=== PATIENT | male | born 1950 | race Caucasian/White ===

== ENCOUNTER 2023-08-08 15:03 | Inpatient (IN) | payer BC, MEDICARE ==
--- NOTE | 2023-08-08 16:00 | CT ---
EXAMINATION TYPE: CT brain wo con CT DLP: 1100.4 mGycm, Automated exposure control for dose reduction was used. DATE OF EXAM: 08/08/2023 3:31 PM COMPARISON: None. CLINICAL INDICATION:Male, 73 years old with history of Neuro deficit, acute, stroke suspected, weakne ss TECHNIQUE: Brain: Multiple axial CT images of the brain were obtained without IV contrast. Coronal and sagittal reformats reviewed. FINDINGS: Brain: Extra-axial spaces: No abnormal extra-axial fluid collections. Ventricular system: Within normal limits Cerebral parenchyma: Cerebral atrophy. No acute intraparenchymal hemorrhage. Regions of hypoattenuati on with loss of bowman-white differentiation in the periphery of the right frontal parietal and tempora l lobes along the sylvian fissure.. Scattered hypoattenuating areas are seen within the white matter. Cerebellum: Unremarkable. Mass effect: No evidence of midline shift. Intracranial vasculature: Atherosclerotic calcifications of the intracranial vessels. Soft tissues: Normal. Calvarium/osseous structures: No depressed skull fracture. Paranasal sinuses and mastoid air cells: The mastoid air cells are clear. Mild mucosal thickening of the bilateral ethmoid sinuses. Mild mucosal thickening in the right frontal sinus. Moderate mucosal t hickening of the right maxillary sinus without air-fluid level. Visualized orbits: Orbital contents are intact. IMPRESSION: 1. Findings most consistent with acute/subacute ischemia within the right MCA distribution. 2. Nonspecific white matter changes, likely secondary to chronic small vessel ischemic disease. 3. Paranasal sinus disease which is most pronounced within the right maxillary sinus. Air-fluid leve l demonstrated. Correlate for acute on chronic sinusitis. Findings called and discussed with Dr. Tejeda at 3:56 PM on 08/08/2023.
[2023-08-08] MEDS ORDERED: SODIUM CHLORIDE 0.9% 1,000 ML IV STA (16:01)
--- NOTE | 2023-08-08 16:08 | ED ---
Neuro HPI - General Chief Complaint: Neuro Symptoms/Deficit Stated Complaint: poss Stroke Time Seen by Provider: 08/08/23 15:47 Source: patient, RN notes reviewed, old records reviewed Mode of arrival: ambulatory - History of Present Illness Is the patient presenting with stroke symptoms?: Yes -: hour(s) (16) Initial Comments: This is a 73-year-old male to the emergency department for evaluation today. Patient presents today for evaluation to the emergency department of strokelike symptoms numbness tingling face facial droop starting before bed last night. Patient has no other complaints no current headache patient has no chest pain or shortness of breath. Patient has no significant medical history no high blood pressure cholesterol diabetes, patient has history of skin cancer Location: speech, left face, dysarthria Place: home Severity: moderate Quality: weak, numb, tingling Improves With: none Worsens With: none Context: gradual onset Associated Symptoms: denies other symptoms Treatments Prior to Arrival: none - Related Data Home Medications: Previous Rx's Medication Instructions Recorded Aspirin 81 mg PO DAILY 90 Days #90 tab 08/10/23 Atorvastatin [Lipitor] 80 mg PO HS 90 Days #90 tab 08/10/23 Clopidogrel [Plavix] 75 mg PO DAILY 21 Days #21 tab 08/10/23 Allergies/Adverse Reactions: Allergies Allergy/AdvReac Type Severity Reaction Status Date / Time No Known Allergies Allergy Verified 08/08/23 16:36 Review of Systems ROS Statement: Those systems with pertinent positive or pertinent negative responses have been documented in the HPI. ROS Other: All systems not noted in ROS Statement are negative. General Exam - General Exam Comments Initial Comments: NIH 4 General appearance: alert, in no apparent distress Head exam: Present: atraumatic, normocephalic, normal inspection Eye exam: Present: normal appearance, PERRL, EOMI. Absent: scleral icterus, conjunctival injection, periorbital swelling ENT exam: Present: normal exam, mucous membranes moist Neck exam: Present: normal inspection. Absent: tenderness, meningismus, lymphadenopathy Respiratory exam: Present: normal lung sounds bilaterally. Absent: respiratory distress, wheezes, rales, rhonchi, stridor Cardiovascular Exam: Present: regular rate, normal rhythm, normal heart sounds. Absent: systolic murmur, diastolic murmur, rubs, gallop, clicks GI/Abdominal exam: Present: soft, normal bowel sounds. Absent: distended, tenderness, guarding, rebound, rigid Extremities exam: Present: normal inspection, full ROM, normal capillary refill. Absent: tenderness, pedal edema, joint swelling, calf tenderness Back exam: Present: normal inspection Neurological exam: Present: alert, oriented X3, CN II-XII intact Psychiatric exam: Present: normal affect, normal mood Skin exam: Present: warm, dry, intact, normal color. Absent: rash Stroke MDM - Lab Data Result diagrams: 08/08/23 15:44 08/08/23 15:44 Lab Results 08/08/23 08/08/23 08/08/23 Range/Units 15:44 15:44 15:44 WBC 8.8 (3.8-10.6) k/uL RBC 4.74 (4.30-5.90) m/uL Hgb 15.2 (13.0-17.5) gm/dL Hct 45.7 (39.0-53.0) % MCV 96.6 (80.0-100.0) fL MCH 32.0 (25.0-35.0) pg MCHC 33.2 (31.0-37.0) g/dL RDW 12.6 (11.5-15.5) % Plt Count 340 (150-450) k/uL MPV 7.4 Neutrophils % 71 % Lymphocytes % 20 % Monocytes % 6 % Eosinophils % 1 % Basophils % 0 % Neutrophils # 6.3 (1.3-7.7) k/uL Lymphocytes # 1.8 (1.0-4.8) k/uL Monocytes # 0.5 (0-1.0) k/uL Eosinophils # 0.1 (0-0.7) k/uL Basophils # 0.0 (0-0.2) k/uL PT 10.6 (10.0-12.5) sec INR 1.0 (<1.2) APTT 22.6 (22.0-30.0) sec Sodium 135 L (137-145) mmol/L Potassium 4.1 (3.5-5.1) mmol/L Chloride 100 (98-107) mmol/L Carbon Dioxide 22 (22-30) mmol/L Anion Gap 13 mmol/L BUN 19 (9-20) mg/dL Creatinine 0.90 (0.66-1.25) mg/dL Est GFR (CKD-EPI)AfAm >90 (>60 ml/min/1.73 sqM) Est GFR (CKD-EPI)NonAf 84 (>60 ml/min/1.73 sqM) Glucose 105 H (74-99) mg/dL Estimated Ave Glu mg/dL mg/dL Hemoglobin A1c (<=6.0) % Calcium 8.7 (8.4-10.2) mg/dL Phosphorus (2.5-4.5) mg/dL Magnesium (1.6-2.3) mg/dL Total Bilirubin 1.1 (0.2-1.3) mg/dL AST 29 (17-59) U/L ALT 16 (4-49) U/L Alkaline Phosphatase 59 (38-126) U/L Creatine Kinase 62 (55-170) U/L Troponin I (0.000-0.034) ng/mL Total Protein 7.1 (6.3-8.2) g/dL Albumin 4.1 (3.5-5.0) g/dL Triglycerides (0.00-149.00) mg/dL Cholesterol (0.00-200.00) mg/dL LDL Cholesterol, Calc (0.0-131.0) mg/dL VLDL Cholesterol, Calc (5.00-40.00) mg/dL HDL Cholesterol (40.00-60.00) mg/dL Cholesterol/HDL Ratio Ratio 08/08/23 08/08/23 08/08/23 Range/Units 15:44 15:44 15:44 WBC (3.8-10.6) k/uL RBC (4.30-5.90) m/uL Hgb (13.0-17.5) gm/dL Hct (39.0-53.0) % MCV (80.0-100.0) fL MCH (25.0-35.0) pg MCHC (31.0-37.0) g/dL RDW (11.5-15.5) % Plt Count (150-450) k/uL MPV Neutrophils % % Lymphocytes % % Monocytes % % Eosinophils % % Basophils % % Neutrophils # (1.3-7.7) k/uL Lymphocytes # (1.0-4.8) k/uL Monocytes # (0-1.0) k/uL Eosinophils # (0-0.7) k/uL Basophils # (0-0.2) k/uL PT (10.0-12.5) sec INR (<1.2) APTT (22.0-30.0) sec Sodium (137-145) mmol/L Potassium (3.5-5.1) mmol/L Chloride (98-107) mmol/L Carbon Dioxide (22-30) mmol/L Anion Gap mmol/L BUN (9-20) mg/dL Creatinine (0.66-1.25) mg/dL Est GFR (CKD-EPI)AfAm (>60 ml/min/1.73 sqM) Est GFR (CKD-EPI)NonAf (>60 ml/min/1.73 sqM) Glucose (74-99) mg/dL Estimated Ave Glu mg/dL mg/dL Hemoglobin A1c (<=6.0) % Calcium (8.4-10.2) mg/dL Phosphorus 3.4 (2.5-4.5) mg/dL Magnesium 2.0 (1.6-2.3) mg/dL Total Bilirubin (0.2-1.3) mg/dL AST (17-59) U/L ALT (4-49) U/L Alkaline Phosphatase (38-126) U/L Creatine Kinase (55-170) U/L Troponin I 0.213 H* (0.000-0.034) ng/mL Total Protein (6.3-8.2) g/dL Albumin (3.5-5.0) g/dL Triglycerides 63.80 (0.00-149.00) mg/dL Cholesterol 192.00 (0.00-200.00) mg/dL LDL Cholesterol, Calc 104.5 (0.0-131.0) mg/dL VLDL Cholesterol, Calc 12.76 (5.00-40.00) mg/dL HDL Cholesterol 74.70 H (40.00-60.00) mg/dL Cholesterol/HDL Ratio 2.57 Ratio 08/08/23 Range/Units 15:44 WBC (3.8-10.6) k/uL RBC (4.30-5.90) m/uL Hgb (13.0-17.5) gm/dL Hct (39.0-53.0) % MCV (80.0-100.0) fL MCH (25.0-35.0) pg MCHC (31.0-37.0) g/dL RDW (11.5-15.5) % Plt Count (150-450) k/uL MPV Neutrophils % % Lymphocytes % % Monocytes % % Eosinophils % % Basophils % % Neutrophils # (1.3-7.7) k/uL Lymphocytes # (1.0-4.8) k/uL Monocytes # (0-1.0) k/uL Eosinophils # (0-0.7) k/uL Basophils # (0-0.2) k/uL PT (10.0-12.5) sec INR (<1.2) APTT (22.0-30.0) sec Sodium (137-145) mmol/L Potassium (3.5-5.1) mmol/L Chloride (98-107) mmol/L Carbon Dioxide (22-30) mmol/L Anion Gap mmol/L BUN (9-20) mg/dL Creatinine (0.66-1.25) mg/dL Est GFR (CKD-EPI)AfAm (>60 ml/min/1.73 sqM) Est GFR (CKD-EPI)NonAf (>60 ml/min/1.73 sqM) Glucose (74-99) mg/dL Estimated Ave Glu mg/dL 114 mg/dL Hemoglobin A1c 5.6 (<=6.0) % Calcium (8.4-10.2) mg/dL Phosphorus (2.5-4.5) mg/dL Magnesium (1.6-2.3) mg/dL Total Bilirubin (0.2-1.3) mg/dL AST (17-59) U/L ALT (4-49) U/L Alkaline Phosphatase (38-126) U/L Creatine Kinase (55-170) U/L Troponin I (0.000-0.034) ng/mL Total Protein (6.3-8.2) g/dL Albumin (3.5-5.0) g/dL Triglycerides (0.00-149.00) mg/dL Cholesterol (0.00-200.00) mg/dL LDL Cholesterol, Calc (0.0-131.0) mg/dL VLDL Cholesterol, Calc (5.00-40.00) mg/dL HDL Cholesterol (40.00-60.00) mg/dL Cholesterol/HDL Ratio Ratio - NIH Stroke Scale 1a. Level of Consciousness: (0) alert 1b. LOC Questions: (0) answers correctly 1c. LOC Commands: (0) performs tasks correctly 2. Best Gaze: (1) partial gaze palsy 3. Visual: (0) no visual loss 4. Facial Palsy: (0) normal symmetrical movement 5a. Motor Arm Left: (1) drift 5b. Motor Arm Right: (0) no drift 6a. Motor Leg Left: (0) no drift 6b. Motor Leg Right: (0) no drift 7. Limb Ataxia: (0) absent 8. Sensory: (0) normal 9. Best Language: (1) mild/moderate aphasia 10. Dysarthria: (1) mild/moderate dysarthria 11. Extinction/Inattention: (0) no abnormality - Thrombolytic Inclusion/Exclusion Thrombolytic Exclusion Criteria: Symptom Onset > 4.5 Hours - Medical Decision Making 73 male to the emergency department for evaluation of around 16 hours of slurred speech and facial droop starting last night before bed. Patient was a code stroke on arrival. CT angiogram had neck is negative for malaise. Patient will be admitted as he does show subacute infarct on computed tomography scan, patient is not a TPA candidate secondary to presentation greater than 12 hours after onset of symptoms - Radiology Data Radiology results: report reviewed (CT brain does show subacute MCA infarct), image reviewed - EKG Data -: EKG Interpreted by Me (EKG is sinus 86 MI 158 QRS 82 QTC 40 to) Past Medical History Past Medical History: No Reported History, Cancer Additional Past Medical History / Comment(s): skin ca History of Any Multi-Drug Resistant Organisms: None Reported Past Surgical History: Tonsillectomy Past Psychological History: No Psychological Hx Reported Smoking Status: Former smoker Past Alcohol Use History: Occasional Past Drug Use History: None Reported - Past Family History Father Family Medical History: CVA/TIA, Dementia Mother Family Medical History: Cancer Course Vital Signs 08/08/23 08/08/23 08/08/23 15:11 16:20 16:30 Temperature 98.2 F Pulse Rate 95 89 84 Respiratory 18 18 18 Rate Blood Pressure 160/97 129/84 127/75 O2 Sat by Pulse 96 96 96 Oximetry 08/08/23 08/08/2308/08/23 16:40 16:50 17:00 Temperature Pulse Rate 79 80 79 Respiratory 16 18 14 Rate Blood Pressure 126/73 126/71 124/74 O2 Sat by Pulse 94 L 94 L 97 Oximetry 08/08/23 08/08/23 08/08/23 17:10 17:30 18:00 Temperature Pulse Rate 79 79 76 Respiratory 14 14 14 Rate Blood Pressure 124/69 121/70 121/75 O2 Sat by Pulse 97 97 96 Oximetry 08/08/23 08/08/23 08/08/23 18:30 19:00 19:10 Temperature 97.8 F Pulse Rate 73 84 Respiratory 18 16 14 Rate Blood Pressure 112/85 121/75 122/69 O2 Sat by Pulse 96 96 Oximetry 08/08/23 08/08/23 08/08/23 21:00 22:00 23:00 Temperature Pulse Rate 71 75 68 Respiratory 14 16 16 Rate Blood Pressure 108/62 105/60 103/66 O2 Sat by Pulse 96 96 95 Oximetry 08/09/23 08/09/23 08/09/23 00:00 01:00 02:00 Temperature Pulse Rate 90 74 64 Respiratory 16 18 Rate Blood Pressure 104/57 116/77 111/68 O2 Sat by Pulse 94 L 94 L Oximetry 08/09/23 08/09/23 08/09/23 06:00 08:48 08:57 Temperature Pulse Rate 67 81 Respiratory 16 18 Rate Blood Pressure 112/57 142/74 O2 Sat by Pulse 98 97 97 Oximetry 08/09/23 11:26 Temperature Pulse Rate 70 Respiratory 18 Rate Blood Pressure 122/76 O2 Sat by Pulse 97 Oximetry - Reevaluation(s) Reevaluation #1: 08/08/23 18:24 Medical records reviewed Code stroke paged on patient arrival Reevaluation #2: 08/08/23 18:24 Patient has no change in neurological status Reevaluation #3: 08/08/23 18:24 Patient informed results questions answered Reevaluation #4: 08/08/23 18:24 Was pt. sent in by a medical professional or institution (, PA, FIELD HEALTH OFFICER, urgent care, hospital, or jail...) When possible be specific @ -no Did you speak to anyone other than the patient for history (EMS, parent, family, police, friend...)? What history was obtained from this source @ -no Did you review nursing and triage notes (agree or disagree)? Why? @ -agree Are old charts reviewed (outside hosp., previous admission, EMS record, old EKG, old radiological studies, urgent care reports/EKG's, jail records)? Report findings @ -yes Differential Diagnosis (chest pain, altered mental status, abdominal pain women, abdominal pain men, vaginal bleeding, weakness, fever, dyspnea, syncope, headache, dizziness, GI bleed, back pain, seizure, CVA, palpatations, mental health, musculoskeletal)? @ -prior EKG interpreted by me (3pts min.). @ -yes X-rays interpreted by me (1pt min.). @ -no CT interpreted by me (1pt min.). @ -yes U/S interpreted by me (1pt. min.). @ -no What testing was considered but not performed or refused? (CT, X-rays, U/S, labs)? Why? @ -none What meds were considered but not given or refused? Why? @ -none Did you discuss the management of the patient with other professionals (professionals i.e. , PA, FIELD HEALTH OFFICER, lab, RT, psych nurse, social professionals, gasateria attendant, teacher, business services officer, therapeutic case manager)? Give summary @ -no Was smoking cessation discussed for >3mins.? @ -no Was critical care preformed (if so, how long)? @ -yes31 Were there social determinants of health that impacted care today? How? (Homeles sness, low income, unemployed, alcoholism, drug addiction, transportation, low edu. Level, literacy, decrease access to med. care, alf, rehab)? @ -none Was there de-escalation of care discussed even if they declined (Discuss DNR or withdrawal of care, Hospice)? DNR status @ -no What co-morbidities impacted this encounter? (DM, HTN, Smoking, COPD, CAD, Cancer, CVA, ARF, Chemo, Hep., AIDS, mental health diagnosis, sleep apnea, morbid obesity)? @ -none Was patient admitted / discharged? Hospital course, mention meds given and route, prescriptions, significant lab abnormalities, going to OR and other pertinent info. @ - 73 male to the emergency department for evaluation of around 16 hours of slurred speech and facial droop starting last night before bed. Patient was a code stroke on arrival. CT angiogram had neck is negative for malaise. Patient will be admitted as he does show subacute infarct on computed tomography scan, patient is not a TPA candidate secondary to presentation greater than 12 hours after onset of symptoms Admitted Undiagnosed new problem with uncertain prognosis? @ -no Drug Therapy requiring intensive monitoring for toxicity (Heparin, Nitro, Insulin, Cardizem)? @ -no Were any procedures done? @ -no Diagnosis/symptom? @ -CVA Acute, or Chronic, or Acute on Chronic? @ -Acute Uncomplicated (without systemic symptoms) or Complicated (systemic symptoms)? @ -Complicated Side effects of treatment? @ -no Exacerbation, Progression, or Severe Exacerbation? @ -exacerbation Poses a threat to life or bodily function? How? (Chest pain, USA, MA, pneumonia, PE, COPD, DKA, ARF, appy, cholecystitis, CVA, Diverticulitis, Homicidal, Suicidal, threat to staff... and all critical care pts) @ -yes with acute CVA Reevaluation #5: 08/08/23 18:24 Differential CVA Ischemic stroke, hemorrhagic stroke, brain tumor, atypical migraine, Wernicke's encephalopathy, seizure, multiple sclerosis, meningitis, encephalitis, hyp oglycemia, Guillain-Medrano, electrolytes disturbance, myasthenia gravis.... This is not meant to be an all-inclusive list - Consultations Consultation #1: Spoke with [facility] were agrees to admit this patient Critical Care Time Critical Care Time: Yes Total Critical Care Time: 31 Disposition Clinical Impression: Cerebrovascular accident (CVA), NSTEMI (non-ST elevated myocardial infarction) Disposition: ADMITTED IP TO THIS HOSP Condition: Serious Is patient prescribed a controlled substance at d/c from ED?: No Time of Disposition: 18:20
[2023-08-08 16:10] LABS: ALT 16 U/L (4-49); AST 29 U/L (17-59); African American GFR (CKD) >90 (>60 ml/min/1.73 sqM); Albumin 4.1 g/dL (3.5-5.0); Alkaline Phosphatase 59 U/L (38-126); Anion Gap 13 mmol/L; Blood Urea Nitrogen 19 mg/dL (9-20); Calcium 8.7 mg/dL (8.4-10.2); Carbon Dioxide 22 mmol/L (22-30); Chloride 100 mmol/L (98-107); Creatine Kinase 62 U/L (55-170); Glucose 105 mg/dL (74-99); Non-African American GFR(CKD) 84 (>60 ml/min/1.73 sqM); Potassium 4.1 mmol/L (3.5-5.1); Sodium 135 mmol/L (137-145); Total Bilirubin 1.1 mg/dL (0.2-1.3); Total Protein 7.1 g/dL (6.3-8.2)
[2023-08-08 16:14] LABS: Basophils % (A) 0 %; Eosinophils # (A) 0.1 k/uL (0-0.7); Eosinophils % (A) 1 %; HCT 45.7 % (39.0-53.0); HGB 15.2 gm/dL (13.0-17.5); Lymphocytes # (A) 1.8 k/uL (1.0-4.8); Lymphocytes % (A) 20 %; MCHC 33.2 g/dL (31.0-37.0); MCV 96.6 fL (80.0-100.0); Mean Platelet Volume 7.4; Monocytes # (A) 0.5 k/uL (0-1.0); Monocytes % (A) 6 %; Neutrophils # (A) 6.3 k/uL (1.3-7.7); Neutrophils % (A) 71 %; Platelet Count 340 k/uL (150-450); RBC 4.74 m/uL (4.30-5.90); RDW 12.6 % (11.5-15.5); WBC 8.8 k/uL (3.8-10.6)
[2023-08-08 16:45] LABS: Partial Thromboplastin Time 22.6 sec (22.0-30.0); Prothrombin Time 10.6 sec (10.0-12.5)
--- NOTE | 2023-08-08 16:46 | CT ---
EXAMINATION TYPE: CT angio head neck DATE OF EXAM: 08/08/2023 HISTORY: Code stroke. Left side facial droop and slurred speech. COMPARISON: None CT DLP: 423.4 mGycm. Automated Exposure Control for Dose Reduction was Utilized. TECHNIQUE: CTA scan of the neck is performed with IV Contrast, patient injected with 65 ml mL of Iso keshav 370, axial images are obtained, coronal and sagittal reformatted images are reviewed. Three-D rec onstructed images are created on an independent workstation and reviewed. Source images are reviewed . FINDINGS: Carotid/Vascular Structures: There is a 3 vessel arch. Common carotid arteries bifurcate into internal and external carotid arteries without significant sona w limiting stenosis. Atheromatous calcification is present at the carotid bifurcations.1 Vertebral arteries are codominant. Internal carotid arteries and vertebral arteries are patent to the skull base. Cervical of [place]: Vertebral basilar system appears normal. Posterior cerebral vasculature is unrema rkable. Internal carotid arteries bifurcate normally into A1 and M1 segments. A2 segments are normal. The anterior communicating artery is patent. The right posterior communicating artery is absent. The left posterior communicating artery is absent. IMPRESSION: 1. No flow-limiting stenosis bilateral carotid bifurcations. 2. Normal Native of [place] NASCET criteria was used in interpretation of this exam?
[2023-08-08 17:23] LABS: Phosphorus 3.4 mg/dL (2.5-4.5)
[2023-08-08] MEDS ORDERED: ASPIRIN 325 MG TAB PO STA (18:20)
[2023-08-08] MEDS: SODIUM CHLORIDE 0.9% 1,000 ML IV SCH (18:36)
[2023-08-08] MEDS: ATORVASTATIN 80 MG TAB PO SCH (20:21)
[2023-08-09] MEDS: SODIUM CHLORIDE 0.9% 1,000 ML IV SCH ×2 (04:08→15:44)
[2023-08-09] MEDS ORDERED: ASPIRIN 325 MG TAB PO SCH (09:00)
[2023-08-09 11:42] LABS: Chol/HDL Ratio 2.57 Ratio; LDL Cholesterol,Calculated 104.5 mg/dL (0.0-131.0); VLDL Calculation 12.76 mg/dL (5.00-40.00)
[2023-08-09] MEDS: CLOPIDOGREL 75 MG TAB PO SCH (11:53)
--- NOTE | 2023-08-09 12:24 | P.CRDCN ---
History of Present Illness History of present illness: HISTORY OF PRESENT ILLNESS: This is a 73-year-old male with a past medical history significant for former nicotine dependence and daily alcohol use. 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 We have been asked to see the patient in consultation for elevated troponins. Patient examined at the bedside. 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 He also reports that his staff members around him noticed he had a facial droop. The patient presented to the hospital for further evaluation. Patient underwent CT of the brain revealing acute/subacute ischemia within the right MCA distribution. The patient currently denies any chest pain or pressure. He denies any shortness of breath. He denies any previous history of TIA/CVA. He denies a history of hypertension, hyperlipidemia, or diabetes. He is a former cigarette smoker and quit smoking approximately one year ago. He was smoking 1 pack per day. He also reports daily alcohol use of 2-3 beers daily * EKG reveals sinus mechanism with no signs of acute ischemia * CT of the brain revealing acute/subacute ischemia within the right MCA distribution * CTA: No flow-limiting stenosis bilateral carotid bifurcations. Normal [facility] [place]. * Laboratory data: WBC 8.8. Hemoglobin 15.2. Platelet count 340. Sodium 135. Potassium 4.1. BUN 19. Creatinine 0.90. Troponin 0.213. 0.194. 0.231. * Current home cardiac medications include none REVIEW OF SYSTEMS: At the time of my exam: CONSTITUTIONAL: Denies fever or chills. HEENT: Denies blurred vision, vision changes, or eye pain. Denies hemoptysis CARDIOVASCULAR: Denies chest pain. Denies orthopnea. Denies PND. Denies palpitations RESPIRATORY: Denies shortness of breath. GASTROINTESTINAL: Denies abdominal pain. Denies nausea or vomiting. HEMATOLOGIC: Denies bleeding disorders. GENITOURINARY: Denies any blood in urine. SKIN: Denies pruitis. Denies rash. PHYSICAL EXAM: VITAL SIGNS: Reviewed. GENERAL: Well-developed in no acute distress. HEENT: Head is normocephalic. Mild left facial droop. Pupils are equal, round. Sclerae anicteric. Mucous membranes of the mouth are moist. Neck supple. No JVD or thyromegaly LUNGS: Respirations even and unlabored. Lungs essentially clear to auscultation bilaterally. HEART: Regular rate and rhythm. S1 and S2 heard. ABDOMEN: Soft. Nondistended. Nontender. EXTREMITIES: Normal range of motion. No clubbing or cyanosis. Peripheral pulses intact. No lower extremity edema NEUROLOGIC: Awake and alert. Oriented x 3. ASSESSMENT: Slurred speech and left facial droop Acute/subacute ischemia within the right MCA distribution Abnormal troponins, flat, likely secondary to above, no evidence of acute coronary syndrome Former nicotine dependence Daily alcohol use PLAN: Obtain 2-D echo to assess cardiac structure and function; also obtain bubble study Patient has been started on aspirin, Plavix, and Lipitor Obtain lipid panel Continue telemetry monitoring to assess for any arrhythmias Consider event monitor at the time of discharge Further recommendations pending patient's course Nurse practitioner note has been reviewed by physician. Signing provider agrees with the documented findings, assessment, and plan of care. Past Medical History Past Medical History: No Reported History, Cancer Additional Past Medical History / Comment(s): skin ca History of Any Multi-Drug Resistant Organisms: None Reported Past Surgical History: Tonsillectomy Past Psychological History: No Psychological Hx Reported Smoking Status: Former smoker Past Alcohol Use History: Occasional Past Drug Use History: None Reported Medications and Allergies Home Medications Medication Instructions Recorded Confirmed Type No Known Home Medications 08/08/23 08/08/23 History Allergies Allergy/AdvReac Type Severity Reaction Status Date / Time No Known Allergies Allergy Verified 08/08/23 16:36 Physical Exam Vitals: Vital Signs Temp Pulse Resp BP Pulse Ox 08/09/23 06:00 67 16 112/57 98 08/09/23 02:00 64 18 111/68 94 L 08/09/23 01:00 74 16 116/77 94 L 08/09/23 00:00 90 104/57 08/08/23 23:00 68 16 103/66 95 08/08/23 22:00 75 16 105/60 96 08/08/23 21:00 71 14 108/62 96 08/08/23 19:10 97.8 F 84 14 122/69 96 08/08/23 19:00 16 121/75 08/08/23 18:30 73 18 112/85 96 08/08/23 18:00 76 14 121/75 96 08/08/23 17:30 79 14 121/70 97 08/08/23 17:10 79 14 124/69 97 08/08/23 17:00 79 14 124/74 97 08/08/23 16:50 80 18 126/71 94 L 08/08/23 16:40 79 16 126/73 94 L 08/08/23 16:30 84 18 127/75 96 08/08/23 16:20 89 18 129/84 96 08/08/23 15:11 98.2 F 95 18 160/97 96 Intake and Output 08/08/23 08/09/23 08/09/23 22:59 06:59 14:59 Other: Weight 72.575 kg Results 08/08/23 15:44 08/08/23 15:44 Cardiac Enzymes 08/08/23 08/08/23 08/08/23 Range/Units 15:44 15:44 20:05 AST 29 (17-59) U/L Troponin I 0.213 H* 0.194 H* (0.000-0.034) ng/mL 08/08/23 Range/Units 23:13 AST (17-59) U/L Troponin I 0.231 H* (0.000-0.034) ng/mL Coagulation 08/08/23 Range/Units 15:44 PT 10.6 (10.0-12.5) sec APTT 22.6 (22.0-30.0) sec CBC 08/08/23 Range/Units 15:44 WBC 8.8 (3.8-10.6) k/uL RBC 4.74 (4.30-5.90) m/uL Hgb 15.2 (13.0-17.5) gm/dL Hct 45.7 (39.0-53.0) % Plt Count 340 (150-450) k/uL Comprehensive Metabolic Panel 08/08/23 Range/Units 15:44 Sodium 135 L (137-145) mmol/L Potassium 4.1 (3.5-5.1) mmol/L Chloride 100 (98-107) mmol/L Carbon Dioxide 22 (22-30) mmol/L BUN 19 (9-20) mg/dL Creatinine 0.90 (0.66-1.25) mg/dL Glucose 105 H (74-99) mg/dL Calcium 8.7 (8.4-10.2) mg/dL AST 29 (17-59) U/L ALT 16 (4-49) U/L Alkaline Phosphatase 59 (38-126) U/L Total Protein 7.1 (6.3-8.2) g/dL Albumin 4.1 (3.5-5.0) g/dL Current Medications Generic Name Dose Route Start Last Admin Trade Name Freq PRN Reason Stop Dose Admin Aspirin 325 mg 08/09/23 09:00 08/09/23 08:43 Aspirin 325 Mg Tab PO 325 mg DAILY JESSICA Administration Atorvastatin Calcium 80 mg 08/08/23 21:00 08/08/23 20:21 Atorvastatin 80 Mg Tab PO 80 mg HS JESSICA Administration Sodium Chloride 1,000 mls @ 100 mls/hr 08/08/23 18:30 08/09/23 04:08 Saline 0.9% IV Not Given .Q10H JESSICA Intake and Output 08/08/23 08/09/23 08/09/23 22:59 06:59 14:59 Other: Weight 72.575 kg 08/08/23 15:44 08/08/23 15:44
--- NOTE | 2023-08-09 13:15 | P.CNNES ---
History of Present Illness Consult date: 08/09/23 Requesting physician: Ry Lawson Reason for Consult: CVA History of Present Illness: Patient is a 73-year-old left-handed male came to the hospital yesterday at 3:03 PM for strokelike symptoms. Patient states that he went to sleep on Tuesday night at around 10 or 11 PM and was in usual state of health. He woke up at 5 in the morning and noticed that he could not put dentures in the mouth, as he kept dropping it. He has been using these dentures for last 50 years and is very much familiar with using it. He went to work at around 8 AM. 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 Patient says that when he was trying to count the money, he kept on dropping the paper money with his left hand. When he started talking to a customer, it was noticed patient has a facial droop, his speech was slightly slurred and he was drooling from the left side of the mouth. The customer told him that he may be having a stroke and he should go to the hospital. He denies any headache. Patient denies any numbness or tingling of the extremities or any focal weakness of the extremities. His vision and gait were normal. Vital signs on arrival blood pressure 160/97, pulse rate [address] head revealed findings most consistent with acute/subacute ischemia within the right MCA distribution. Nonspecific white matter changes, likely secondary to chronic small vessel ischemic disease. Paranasal sinus disease which is most pronounced within the right maxillary sinus. Air fluid level demonstrated. Correlate for acute on chronic sinusitis. I personally reviewed CT head, and appears to have subacute ischemia involving the right frontal cortical region extending to the right insular region. No hemorrhage. Agree with evidence of right maxillary sinus disease. Also there is evidence of impacted cerumen left EAC. EKG shows sinus rhythm. Blood test shows normal CBC PT/PTT, sodium 135 normal potassium, renal and hepatic panel. Troponin is mildly elevated 0.213. CK is normal. In the ED, stroke code was activated. Patient was not a candidate for TPA, as his symptoms has been present for 16 hours prior to arrival. There was no large vessel occlusion noted. Patient's NIH stroke scale documented in the ER was 4. Patient has history of smoking 1-1/2 pack per day for about 25-30 years, quit on 10/25/2022. He does drink couple beers per day. Denies any use of drugs or marijuana. Denies any hypertension or diabetes. Patient not on any medication at home except Claritin-D for sinuses for last 3-4 years. He does not take any antiplatelet medication at home. Review of Systems Constitutional: Denies chills, Denies fever Eyes: denies blurred vision, denies diplopia, denies pain Ears: deny: decreased hearing, ear discharge Ears, nose, mouth and throat: Reports sinus pressure (In fall season, nose gets stuffed up.), Denies headache, Denies sore throat Cardiovascular: Denies chest pain, Denies shortness of breath Respiratory: Reports excessive sputum (Witth allergies), Denies cough Gastrointestinal: Denies abdominal pain, Denies diarrhea, Denies nausea, Denies vomiting Genitourinary: Denies dysuria, Denies flank pain, Denies incontinence, Denies urinary frequency Musculoskeletal: Denies low back pain, Denies myalgias, Denies neck pain Integumentary: Denies pruritus, Denies rash Neurological: Reports as per HPI Psychiatric: Denies anxiety, Denies depression Endocrine: Denies fatigue, Denies weight change Hematologic/Lymphatic: Denies easy bleeding, Denies easy bruising Past Medical History Past Medical History: No Reported History, Cancer Additional Past Medical History / Comment(s): skin ca History of Any Multi-Drug Resistant Organisms: None Reported Past Surgical History: Tonsillectomy Past Psychological History: No Psychological Hx Reported Smoking Status: Former smoker Past Alcohol Use History: Occasional Past Drug Use History: None Reported - Past Family History Father Family Medical History: CVA/TIA, Dementia Mother Family Medical History: Cancer Medications and Allergies Home Medications Medication Instructions Recorded Confirmed Type No Known Home Medications 08/08/23 08/08/23 History Allergies Allergy/AdvReac Type Severity Reaction Status Date / Time No Known Allergies Allergy Verified 08/08/23 16:36 Physical Examination - Vital Signs Vital Signs: Vital Signs Temp Pulse Resp BP Pulse Ox 08/09/23 08:57 97 08/09/23 08:48 81 18 142/74 97 08/09/23 06:00 67 16 112/57 98 08/09/23 02:00 64 18 111/68 94 L 08/09/23 01:00 74 16 116/77 94 L 08/09/23 00:00 90 104/57 08/08/23 23:00 68 16 103/66 95 08/08/23 22:00 75 16 105/60 96 08/08/23 21:00 71 14 108/62 96 08/08/23 19:10 97.8 F 84 14 122/69 96 08/08/23 19:00 16 121/75 08/08/23 18:30 73 18 112/85 96 08/08/23 18:00 76 14 121/75 96 08/08/23 17:30 79 14 121/70 97 08/08/23 17:10 79 14 124/69 97 08/08/23 17:00 79 14 124/74 97 08/08/23 16:50 80 18 126/71 94 L 08/08/23 16:40 79 16 126/73 94 L 08/08/23 16:30 84 18 127/75 96 08/08/23 16:20 89 18 129/84 96 08/08/23 15:11 98.2 F 95 18 160/97 96 Intake and Output 08/08/23 08/09/23 08/09/23 22:59 06:59 14:59 Other: Weight 72.575 kg Patient is an elderly male, very pleasant, in no acute distress. Patient is alert awake oriented to time place and person. Speech is mildly dysarthric and language functions are normal. Patient can name and repeat very well. Attention, concentration and fund of knowledge is adequate. On cranial nerve examination, pupils are equal, round and reacting to light, visual [place] are full on confrontation, with no neglect on double simultaneous stimulation. Extraocular muscles are intact with no nystagmus. Patient has obvious left facial droop, central type. His tongue protrudes to the midline. Palatal elevation and sensation normal, hearing and shoulder shrug normal, facial sensation normal. On muscle strength testing, there is left-sided pronation but no drift. The muscle strength is normal in arms and legs distally and proximally, except left nutrition counselor, which is 5-, with normal 5 on the right. Deep tendon reflexes are symmetric biceps 2, brachioradialis 1+, knees 2, ankles 1 and plantars downgoing bilaterally. Sensory to touch is equal with no neglect on double simultaneous stimulation. Cerebellar function showed no ataxia for [id number] testing on either side. No dysdiadochokinesia. Patient has mild ataxia for phxi-ce-[id number] testing on either side. Tone and bulk of muscles normal. Patient has quite slow finger tapping with his left hand as compared to the right. Gait deferred.. On general examination, there is no carotid bruit or murmur, S1-S2 audible. Chest is clear on consultation. Abdomen is soft nontender. No organomegaly, bowel sounds present. Peripheral pulses are present. No edema. Results - Laboratory Findings CBC and BMP: 08/08/23 15:44 08/08/23 15:44 Abnormal Lab Findings: Abnormal Labs 08/08/23 08/08/23 08/08/23 15:44 15:44 20:05 Sodium 135 L Glucose 105 H Troponin I 0.213 H* 0.194 H* 08/08/23 23:13 Sodium Glucose Troponin I 0.231 H* Assessment and Plan Assessment: * Acute ischemic stroke, involving right MCA vascular territory, in the right frontal region extending to the right insular cortex. Rule out cardioembolic source. * Elevated cardiac enzymes * Hypertension * Hyperlipidemia * X tobacco use Plan: * CT head confirmed subacute stroke, small to moderate size, involving the right MCA vascular territory, in the frontal region extending to the right insular cortex. Patient's current NIH stroke scale is 4. Patient was not a candidate for TPA because he came outside the window. No LVO. * 2-D echo with bubble study to rule out PFO * CTA head and neck showed: No flow-limiting stenosis bilateral carotid bifurcations. Normal [place] [facility] [place]. * Fasting a.m. lipid panel with cholesterol 192, LDL 104, HDL 74, triglycerides 63. Agree with starting Lipitor 80 mg. * Hemoglobin A1c * Permissive hypertension for next 24-48 hours * Patient was given a loading dose of aspirin 325 mg in the ER. Patient to be placed on dual antiplatelet medication with Plavix 75 mg, aspirin 81 mg for 21 days. Thereafter stop Plavix and continue aspirin indefinitely. * Event monitor for 30 days at the time of discharge to rule out paroxysmal atrial fibrillation. * Close neuro checks. * Telemetry monitoring at this time showing sinus rhythm, in the 70s. No other arrhythmia. * PT, OT, speech therapy. * DVT prophylaxis: Heparin 5000 units subcu every 12 hours * Neurology will continue to follow. Thank you for the consult.
[2023-08-09] MEDS: ASPIRIN 81 MG PO SCH (13:24)
[2023-08-09] MEDS: HEPARIN SODIUM,PORCINE 5,000 UNIT/ML 1 ML VIAL SQ SCH (19:34)
[2023-08-09] MEDS: ATORVASTATIN 80 MG TAB PO SCH (19:34)
[2023-08-10] MEDS: ASPIRIN 81 MG PO SCH (07:25)
[2023-08-10] MEDS: CLOPIDOGREL 75 MG TAB PO SCH (07:26)
[2023-08-10] MEDS: SODIUM CHLORIDE 0.9% 1,000 ML IV SCH ×2 (07:26→07:28)
[2023-08-10] MEDS: HEPARIN SODIUM,PORCINE 5,000 UNIT/ML 1 ML VIAL SQ SCH (07:26)
--- NOTE | 2023-08-10 10:21 | CA ---
Transthoracic Echo Report Name: Suman Myrick Age: 73 Gender: M : 1950 Exam Date: 08/09/2023 10:10 Exam Location: [facility] Ht (in): 69 Wt (lb): 160 Ordering Physician: Marline Smith Attending/Referring Phys: [id number], Sarah Miter Operator Lilia Groevs RDCS Procedure CPT: Indications: Thrombus Cardiac Hx: Technical Quality: Fair Contrast 1: Total Dose (mL): Contrast 2: Total Dose (mL): MEASUREMENTS (Male / Female) Normal Values 2D ECHO LV Diastolic Diameter PLAX 3.8 cm 4.2 - 5.9 / 3.9 - 5.3 cm LV Systolic Diameter PLAX 2.4 cm IVS Diastolic Thickness 1.3 cm 0.6 - 1.0 / 0.6 - 0.9 cm LVPW Diastolic Thickness 1.0 cm 0.6 - 1.0 / 0.6 - 0.9 cm LV Relative Wall Thickness 0.6 RV Internal Dim ED PLAX 3.1 cm LA Systolic Diameter LX 2.9 cm 3.0 - 4.0 / 2.7 - 3.8 cm LV Diastolic Volume MOD 4C 74.4 cm??? LV Systolic Volume MOD 4C 33.4 cm??? LV Ejection Fraction MOD 4C 55.2 % LV Cardiac Index MOD 4C 1438.9 cm???/min???m??? LV Diastolic Length 4C 8.0 cm LV Systolic Length 4C 6.3 cm LV Diastolic Volume MOD 2C 87.5 cm??? LV Systolic Volume MOD 2C 31.6 cm??? LV Ejection Fraction MOD 2C 63.9 % LV Cardiac Index MOD 2C 1960.3 cm???/min???m??? LV Diastolic Length 2C 8.2 cm LV Systolic Length 2C 6.5 cm LA Volume 41.2 cm??? 18 - 58 / 22 - 52 cm??? LA Volume Index 21.9 cm???/m??? 16 - 28 cm???/m??? M-MODE Aortic Root Diameter MM 3.9 cm MV E Point Septal Separation 1.3 cm AV Cusp Separation MM 2.6 cm DOPPLER AV Peak Velocity 108.3 cm/s AV Peak Gradient 4.7 mmHg AI Peak Velocity 377.0 cm/s AI Peak Gradient 56.8 mmHg AI Pressure Half Time 673.2 ms MV Area PHT 3.5 cm??? Mitral E Point Velocity 94.4 cm/s Mitral A Point Velocity 82.6 cm/s Mitral E to A Ratio 1.1 MV Deceleration Time 216.2 ms MV E' Velocity 10.5 cm/s Mitral E to MV E' Ratio 9.0 TR Peak Velocity 257.7 cm/s TR Peak Gradient 26.6 mmHg Right Ventricular Systolic Press 31.6 mmHg FINDINGS Left Ventricle small left ventricular cavity. eft ventricular ejection fraction is estimated at 60-65 %. Mildly increased septal wall thickness. Right Ventricle Normal right ventricular size. Right ventricular systolic pressure within normal limits. Right Atrium Normal right atrial size. Left Atrium Normal left atrial size. Mitral Valve Mitral valve thickened. Trace to mild mitral regurgitation. Aortic Valve Trileaflet aortic valve. No aortic valve stenosis or regurgitation. Tricuspid Valve Structurally normal tricuspid valve. Mild tricuspid regurgitation. Pulmonic Valve Structurally normal pulmonic valve. Pericardium No pericardial effusion. Aorta Mild aortic dilatation at the level of the sinuses of [place] 39 mm CONCLUSIONS Preserved LV size and systolic function Previewed by: Dr. Noman Estrada MD (Electronically Signed) Final Date: 10 August 2023 10:20
[2023-08-10 11:44] VITALS: BP 153/77; PULSE 83; RESP 16; TEMP 97.8
--- NOTE | 2023-08-10 13:44 | P.PN ---
Subjective HISTORY OF PRESENT ILLNESS: This is a 73-year-old male with a past medical history significant for former nicotine dependence and daily alcohol use. 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 We have been asked to see the patient in consultation for elevated troponins. Patient examined at the bedside. 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 He also reports that his staff members around him noticed he had a facial droop. The patient presented to the hospital for further evaluation. Patient underwent CT of the brain revealing acute/subacute ischemia within the right MCA distribution. The patient currently denies any chest pain or pressure. He denies any shortness of breath. He denies any previous history of TIA/CVA. He denies a history of hypertension, hyperlipidemia, or diabetes. He is a former cigarette smoker and quit smoking approximately one year ago. He was smoking 1 pack per day. He also reports daily alcohol use of 2-3 beers daily * EKG reveals sinus mechanism with no signs of acute ischemia * CT of the brain revealing acute/subacute ischemia within the right MCA distribution * CTA: No flow-limiting stenosis bilateral carotid bifurcations. Normal [place] [facility] [place]. * Laboratory data: WBC 8.8. Hemoglobin 15.2. Platelet count 340. Sodium 135. Potassium 4.1. BUN 19. Creatinine 0.90. Troponin 0.213. 0.194. 0.231. * Current home cardiac medications include none 08/10/2023 Patient examined this morning at the bedside. Patient denies chest pain or pressure. Echocardiogram completed revealing ejection fraction 60-65%, trace to mild mitral regurgitation, mild tricuspid regurgitation, and no [id number] shunting on bubble study. Telemetry reveals sinus mechanism. Vital signs are stable. PHYSICAL EXAM: VITAL SIGNS: Reviewed. GENERAL: Well-developed in no acute distress. HEENT: Head is normocephalic. Mild left facial droop. Pupils are equal, round. Sclerae anicteric. Mucous membranes of the mouth are moist. Neck supple. No JVD or thyromegaly LUNGS: Respirations even and unlabored. Lungs essentially clear to auscultation bilaterally. HEART: Regular rate and rhythm. S1 and S2 heard. ABDOMEN: Soft. Nondistended. Nontender. EXTREMITIES: Normal range of motion. No clubbing or cyanosis. Peripheral pulses intact. No lower extremity edema NEUROLOGIC: Awake and alert. Oriented x 3. ASSESSMENT: Slurred speech and left facial droop Acute/subacute ischemia within the right MCA distribution Abnormal troponins, flat, likely secondary to above, no evidence of acute coronary syndrome Former nicotine dependence Daily alcohol use PLAN: Patient has been started on aspirin, Plavix, and Lipitor Continue telemetry monitoring to assess for any arrhythmias Patient will receive event monitor from [facility] at the time of discharge Further recommendations pending patient's course Patient to follow up with Dr. Fitzpatrick post discharge Nurse practitioner note has been reviewed by physician. Signing provider agrees with the documented findings, assessment, and plan of care. Objective - Vital Signs Vital signs: Vital Signs Temp 97.8 F 08/10/23 11:27 Pulse 83 08/10/23 11:27 Resp 16 08/10/23 11:27 BP 153/77 08/10/23 11:27 Pulse Ox 96 08/10/23 11:27 FiO2 Intake & Output 08/09/23 08/10/23 08/10/23 18:59 06:59 18:59 Intake Total 120 240 Balance 120 240 Weight 72.575 kg Intake: Oral 120 240 Other: # Voids 1 2 - Labs CBC & Chem 7: 08/08/23 15:44 08/08/23 15:44
--- NOTE | 2023-08-10 17:38 | P.PN ---
Subjective Progress Note Date: 08/10/23 Patient was seen for a follow-up. Patient denies any numbness, any tingling or weakness. Denies any visual symptoms. He wants to go home. Continues to have left facial weakness. Objective - Vital Signs Vital signs: Vital Signs Temp 97.8 F 08/10/23 11:27 Pulse 83 08/10/23 11:27 Resp 16 08/10/23 11:27 BP 153/77 08/10/23 11:27 Pulse Ox 96 08/10/23 11:27 FiO2 Intake & Output 08/09/23 08/10/23 08/10/23 18:59 06:59 18:59 Intake Total 120 240 Balance 120 240 Weight 72.575 kg Intake: Oral 120 240 Other: # Voids 1 2 - Exam Patient's mental status, speech and language functions are normal. No significant dysarthria. Cranial nerves significant for left facial droop. All other cranial nerves are normal including visual [place]. No neglect. On muscle strength testing, patient is very mild left pronation but no drift. The strength is completely normal in the arms and legs. Sensory, cerebellar functions are normal. Fine motor tasks decreased on the left. - Labs CBC & Chem 7: 08/08/23 15:44 08/08/23 15:44 Assessment and Plan Assessment: * Acute ischemic stroke, involving right MCA vascular territory, in the right frontal region extending to the right insular cortex. Rule out cardioembolic source. * Elevated cardiac enzymes * Hypertension * Hyperlipidemia * X tobacco use Plan: * CT head confirmed subacute stroke, small to moderate size, involving the right MCA vascular territory, in the frontal region extending to the right insular cortex. Patient's current NIH stroke scale is 4. Patient was not a candidate for TPA because he came outside the window. No LVO. * 2-D echo revealed preserved left ventricular size and systolic function with EF 60-65%. Mildly increased septal wall thickness. Normal left atrial size. No [id number] shunting on bubble study. * CTA head and neck showed: No flow-limiting stenosis bilateral carotid bifurcations. Normal [place] [facility] [place]. * Fasting a.m. lipid panel with cholesterol 192, LDL 104, HDL 74, triglycerides 63. Agree with starting Lipitor 80 mg. * Hemoglobin A1c 5.6 * Optimize control of blood pressure to normotensive levels. * Patient was given a loading dose of aspirin 325 mg in the ER. Patient to be placed on dual antiplatelet medication with Plavix 75 mg, aspirin 81 mg for 21 days. Thereafter stop Plavix and continue aspirin indefinitely. * Event monitor for 30 days at the time of discharge to rule out paroxysmal atrial fibrillation. Appreciate cardiology input. * Telemetry monitoring at this time showing sinus rhythm, in the 70s. No other arrhythmia. * PT, OT, speech therapy. * Neurologically clear for discharge. May follow up with neurologist outpatient.
--- NOTE | 2023-08-10 22:20 | HP ---
HISTORY AND PHYSICAL SUBJECTIVE: A 73-year-old white male, came in with stroke-like symptoms, tingling in his face before . No headaches. He has no high blood pressure, cholesterol, diabetes, etc. HOME MEDICATIONS: Negative. ALLERGIES: Negative. REVIEW OF SYSTEMS: A 14-point review of systems otherwise negative except he has difficulty breathing at times. PHYSICAL EXAMINATION: GENERAL: He is alert and oriented x3. VITAL SIGNS: Blood pressure is 198.2, pulse is 88 to 95, blood pressure 120s to 160s, O2 saturation 96% on room air. CARDIOVASCULAR: S1, S2. LUNGS: Clear. Mild wheezes. GI: Soft. HEMATOLOGY: Negative Homans. PSYCHIATRIC: Fair mood and affect. LABORATORY DATA: Sodium 135, potassium 4.1, hemoglobin 15.2, white count 8.8. They did not give him thrombolytics in the ER. He had elevated troponin 0.21. He says he was not a tPA candidate because he stayed at home for a day after he got facial numbness before he came to the ER. EKG sinus rhythm. PLAN: Continue current treatments. Possible TIA versus CVA. Suspect he has COPD, and alcohol dependence. Please see further orders. Wait for Neurology to get involved and possibly go home after they all clear him. MMODL / IJN: [id number] /
--- NOTE | 2023-08-11 07:32 | HP ---
HISTORY AND PHYSICAL SUBJECTIVE: Suman Myrick is 73-year-old, came to the emergency room with facial numbness and tingling. No other headaches or difficulties at this time. He felt some dysarthric speech discomfort. ALLERGIES: Negative. REVIEW OF SYSTEMS: Fourteen-point review of systems is negative. DICTATION ENDS HERE MMODL / IJN: [id number] /
--- NOTE | 2023-08-12 14:59 | CDI ---
Documentation Clarification Form Date: 08/12/2023 02:38:43 PM From: Yaz Alanis RN, CCDS Email: [email or web address] Admit Date: 08/08/2023 06:22:00 PM Patient Name: Suman Myrick Visit Number: [id number] Discharge Date: 08/10/2023 03:58:00 PM ATTENTION: The Clinical Documentation Specialists (CDI) and [facility] Coding Staff appreciate your assistance in clarifying documentation. Please respond to the clarification below the line at the bottom and electronically sign. The CDI & [facility] Coding staff will review the response and follow-up if needed. Please note: Queries are made part of the Legal Health Record. If you have any questions, please contact the author of this message via ITS. Dr. Mike Gaspar Your patient had elevated troponin levels. Please clarify if there is an additional diagnosis and/or clinical significance related to this value. Patient history/risk factors: Patient presented with stroke like symptoms, numbness, tingling face and facial droop. Patient has no significant medical history. Admitted with acute ischemic stroke. Clinical indicators: 08/08 Troponins: 0.231-0.194-0.213 08/10 H&P: "They did not give him thrombolytics in the ER. He had elevated troponin 0.21." Cardiology: "Slurred speech and left facial droop. Acute/subacute ischemia within the right MCA distribution. Abnormal troponins, flat, likely secondary to above." Neurology: "Acute ischemic stroke, involving right MCA vascular territory, in the right frontal region extending to the right insular cortex. 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
--- NOTE | 2023-08-15 10:50 | PN ---
PROGRESS NOTE Type 2 ME, secondary to stroke. DICTATION ENDS HERE MMODL / IJN: [id number] /
== END 2023-08-10 15:58 | disposition home or self-care (01) | DRG 64 ==
LOC: EC 15:03 → 3SCARD 18:22
PROVIDERS: ADMIT Family Medicine; ATTEND Family Medicine
DX: I63.511 Cerebral infarction due to unspecified occlusion or stenosis of right middle cerebral artery (principal); I21.A1 Myocardial infarction type 2; J44.9 Chronic obstructive pulmonary disease, unspecified; I10 Essential (primary) hypertension; I08.1 Rheumatic disorders of both mitral and tricuspid valves; E78.5 Hyperlipidemia, unspecified; F10.90 Alcohol use, unspecified, uncomplicated; H61.22 Impacted cerumen, left ear; J32.0 Chronic maxillary sinusitis; J01.00 Acute maxillary sinusitis, unspecified; R20.0 Anesthesia of skin; R29.810 Facial weakness; R47.1 Dysarthria and anarthria; R29.704 NIHSS score 4; Z87.891 Personal history of nicotine dependence; Z28.310 Unvaccinated for COVID-19
CPT/HCPCS: 36415; 70450; 70496; 70498; 80053; 80061; 82550; 83036; 83735; 84100; 84484; 85025; 85610; 85730; 93005; 93306; 94760